=== PATIENT | female | born 1995 | race Caucasian/White ===

== ENCOUNTER 2019-08-11 08:36 | Observation (INO) ==
[2019-08-11] MEDS ORDERED: RINGER'S SOLUTION,LACTATED 1,000 ML IV ONE (12:59)
[2019-08-11] MEDS ORDERED: DEXTROSE 5%-LACTATED RINGERS 1,000 ML IV PRN (14:52)
[2019-08-11 17:42] VITALS: BP 119/74
--- NOTE | 2019-08-11 19:03 | HP ---
Chief Complaint - Chief Complaint Date of Service: 08/11/19 Time of Service: 12:00 Chief Complaint: fall down stairs History of Present Illness: 24 yo at 34 2/7 weeks presents to L&D for evaluation after falling down her front steps at home around 0745 this am. Patient was walking out the door on her way to work when she slipped on the 2nd wooden step at home falling on her left buttock and hitting her lower back against the step above. She complains of mild left buttock and low back pain. She denies hitting her head, abdominal pain, vaginal bleeding or d/c, decreased movement, LOF, lightheadedness, or difficulty walking. This complicated by anemia and asthma. Rh positive Rubella immune GBS unknown. Medical History (Last Reviewed 08/11/19 @ 18:53 by Ambrocio Marina DO) Varicose veins of both lower extremities (Chronic) Asthma (Chronic) Onset Date: Unknown Anemia Onset Date: 06/15/19 Surgical History: Surgical History (Last Reviewed 08/11/19 @ 18:53 by Ambrocio Marina DO) History of endoscopy (Resolved) Onset Date: Unknown 15 years of age Family History: Family History (Last Reviewed 08/11/19 @ 18:53 by Ambrocio Marina DO) Mother Alive and well Father Cancer renal carcinoma with mets Sister Alive and well Social History: (Last Reviewed 08/11/19 @ 18:53 by Ambrocio Marina DO) Social History: Marital status: current occupational status: employed current occupation: nursing [employer] Highest education level completed: Associate degree: occupat Service: No Tobacco: Smoking Status: Never smoker Alcohol: alcohol intake: former Alcohol type: wine, hard liquor alcohol intake frequency: holiday/special occasion details: couple drinks when she does Substance Use: substance use type: does not use Dietary Habits: caffeine: No Type: coffee, tea Review Of Systems (GEN) - Review of Systems Generalized/Overall Review: Present: No Symptoms Reported EENTM: Present: No Symptoms Reported Respiratory: Present: No Symptoms Reported Cardiac: Present: No Symptoms Reported Abdominal: Present: No Symptoms Reported Genitourinary: Present: No Symptoms Reported Musculoskeletal: Present: Back Pain, Other - left buttock pain Neurological: Present: No Symptoms Reported Skin: Present: No Symptoms Reported Endocrine: Present: No Symptoms Reported Allergies/Adverse Reactions: Allergies Allergy/AdvReac Type Severity Reaction Status Date / Time cat dander Allergy Unknown itchy Verified 08/11/19 08:54 eyes, sneezing house dust Allergy Unknown rhinitis Verified 08/11/19 08:54 mold Allergy Unknown rhninitis Verified 08/11/19 08:54 tree and shrub pollen Allergy Unknown rhinitis Verified 08/11/19 08:54 Home Medications: HOME MEDICATIONS albuterol sulfate 90 mcg/actuation aerosol inhaler 2 puff IH Q4H PRN #8 g 11/18/18 [Last Taken Unknown] PNV 153-FA 400 mcg-om3 35 mg-dha 25 mg-epa 5 mg-fish oil chew tablet tab PO tab 02/13/19 [Last Taken 08/11/19] ferrous sulfate 325 mg (65 mg iron) tablet 325 mg PO DAILY #30 tab 06/15/19 [Last Taken 2 Days Ago ~08/09/19] ascorbic acid (vitamin C) 500 mg tablet 500 mg PO DAILY 07/07/19 [Last Taken 1 Day Ago ~08/10/19] cetirizine 10 mg tablet 10 mg PO DAILY PRN 07/07/19 [Last Taken Unknown] breast pump See Rx Instructions .ROUTE .MEDSUPPLY #1 ea 07/20/19 [Last Taken Unknown] Exam - Exam Vital Signs: Vital Signs - Last Taken Temp 37.2 C 08/11/19 08:41 Pulse 91 08/11/19 08:41 Resp 18 08/11/19 08:41 BP 119/74 08/11/19 08:41 Pulse Ox 99 08/11/19 08:41 Constitutional: Present: Alert, Oriented x3, Cooperative, No distress ENT Exam: Present: hearing grossly normal Neck: Present: non-tender Back Exam: Present: normal inspection, no vertebral tenderness, other - horizontal linear red streak just above left buttock upon initial presentation to L&D, resolved within 1-2 hours. No bruising or abrasion.. Absent: muscle spasm Breasts: Present: Exam deferred Respiratory: Present: lungs clear, no respiratory distress Cardiovascular/Chest: Present: regular rate, rhythm, no edema Abdomen: Present: soft, nontender, no rebound tenderness, other - gravid /Rectal: Present: Other - Cervix - closed Extremity: Present: no pedal edema, no calf tenderness Skin Exam: Present: normal color, warm/dry, no cyanosis Neurologic: Present: alert, normal mood/affect, oriented x 3 Appearance: Present: appropriate appearance, appropriate insight Eye contact: Present: cooperative, good eye contact, normal speech Thoughts: Present: normal mood /affect Assessment/Plan - Assessment/Plan (1) Fall (on) (from) other stairs and steps, initial encounter Assessment: Admit for 23 hour observation due to frequent contractions after fall and high risk for placental abruption. Keep NPO until stable and risks of abruption decreased. Continuous monitoring. Problem: Acute (2) At high risk for maternal or injury Problem: Acute (3) Threatened labor Problem: Acute Qualifiers: Trimester: third trimester Qualified Code(s): O47.03 - False labor before 37 completed weeks of gestation, third trimester (4) Placental abruption in third trimester Problem: Suspected Non Stress Test - Status NST: 08/11/19 Reason for NST: other - s/p fall, r/o abruption, threatened labor Monitor Mode: External Acceleration: Present Decelerations: None Variability: Moderate 6-25 bpm Baseline Heart Rate: 145 Activity: reactive - Assessment NST Assessment: other - S/p fall, r/o abruption, threatened labor - frequent contractions of mild intensity - Plan NST Plan: Admit to L&D
--- NOTE | 2019-08-11 19:05 | PN ---
Subjective - Date and Time Seen Date: 08/11/19 Time: 19:04 Objective - Review of Systems Generalized/Overall Review: Reports: No Symptoms Reported EENTM: Reports: No Symptoms Reported Respiratory: Reports: No Symptoms Reported Cardiac: Reports: No Symptoms Reported Abdominal: Reports: Other - feels occasional contraction but not painful Genitourinary Symptoms: Reports: No Symptoms Reported Musculoskeletal Complaints: Reports: Other - left buttock pain Neurological: Reports: No Symptoms Reported Skin: Reports: No Symptoms Reported Endocrine: Reports: No Symptoms Reported - Vitals Vitals: Last Vital Signs Temp 37.2 C 08/11/19 08:41 Pulse 91 08/11/19 08:41 Resp 18 08/11/19 08:41 BP 119/74 08/11/19 08:41 Pulse Ox 99 08/11/19 08:41 - Exam Exam Narrative: No change in exam from earlier today. tracing continues to look reassuring. Contractions present but irregular and not lasting as long. Constitutional: Present: Alert, Oriented x3, Cooperative Assessment/Plan - Problems/Diagnosis (1) Fall (on) (from) other stairs and steps, initial encounter Problem: Acute Narrative: Since patient has remained stable over the past 9 hours and contractions have not increased intensity or frequency, will allow her to eat and take a quick shower. If her contractions resolve over the next few hours, will send home on abruption precautions. If her contractions continue, will continue continuous monitoring till 24 hours post fall. (2) At high risk for maternal or injury Problem: Acute (3) Threatened labor Problem: Acute Qualifiers: Trimester: third trimester Qualified Code(s): O47.03 - False labor before 37 completed weeks of gestation, third trimester (4) Placental abruption in third trimester Problem: Suspected
== END 2019-08-11 22:05 | disposition home or self-care (01) ==
LOC: OBCLINIC 08:36 → OB 08:36
PROVIDERS: ADMIT Obstetrics & Gynecology; ATTEND Obstetrics & Gynecology
DX: O60.03 Preterm labor without delivery, third trimester; O71.89 Other specified obstetric trauma; O99.013 Anemia complicating pregnancy, third trimester; Z3A.34 34 weeks gestation of pregnancy; W10.8XXA Fall (on) (from) other stairs and steps, initial encounter
CPT/HCPCS: 59025; G0378